=== PATIENT | male | born 1955 | race Caucasian/White ===

== ENCOUNTER 2024-07-21 11:49 | Day surgery (SDC) | payer OTHER ==
[~2024-07-21] VITALS: Ht 172.7 cm; Wt 82.9 kg
[~2024-07-21 11:49] MED LIST: Balanced Salt Epinephrine Irrigation Solution 500 mL IR SCH; DULO60; Lidocaine HCl/Pf 1% 5 ML VIAL ONE; Lidocaine HCl/Pf 1% 5 ML VIAL XX SCH; MULTI VITAMIN1 EACH PO; Moxifloxacin HCL 0.5 MG/0.1 ML 0.4MLSYR RIGHTEYE SCH; NS 500 ML IV ONE; Omeprazole20 M1; PHENYLEPHRINE\\TROPICAMIDE\\TETRACAINE OPHTHALMIC DILATING SOLN RIGHTEYE PRN; Povidone-Iodine 450 DROP/30 ML Solution RIGHTEYE SCH; Triamcinolone Inj Susp 40 MG / ML 1ML Vial INJ SCH; Triamcinolone Inj Susp 40 MG / ML 1ML Vial ONE
[2024-07-21] MEDS ORDERED: NS 500 ML IV ONE (12:11)
[2024-07-21] MEDS ORDERED: LOSA50 PO (12:16)
[2024-07-21] MEDS ORDERED: Midazolam HCl 1MG / ML 2ML Vial ONE (12:52)
[2024-07-21 13:47] VITALS: BP 140/85
== END 2024-07-21 13:48 | disposition home or self-care (01) ==
LOC: ORSCSDS 11:49
PROVIDERS: Ophthalmology
PROC: 08RJ3JZ Replacement of Right Lens with Synthetic Substitute, Percutaneous Approach (ICD-10-PCS; principal; 2024-07-21 13:30)
DX: H25.11 Age-related nuclear cataract, right eye (principal); H25.813 Combined forms of age-related cataract, bilateral; H52.201 Unspecified astigmatism, right eye; I10 Essential (primary) hypertension; K21.9 Gastro-esophageal reflux disease without esophagitis; Z79.899 Other long term (current) drug therapy
CPT/HCPCS: J2001; J2250; J3301; J7040; V2632